=== PATIENT | male | born 1965 | race Two or more races ===

== ENCOUNTER 2016-11-13 06:18 | Inpatient (IN) | payer MEDICAID ==
[2016-11-13] VITALS (25 sets, daily range): BP systolic 100–139; BP diastolic 58–94
[~2016-11-13] VITALS: Ht 175.3 cm; Wt 84.4 kg
[~2016-11-13 06:18] MED LIST: ACYC800T PO; ETOMIDATE 2 MG/ML VIAL ONE; LEVO750T21 PO; PHEN100C4 PO; SUCCINYLCHOLINE CHLORIDE 20 MG/ML VIAL ONE
[2016-11-13] MEDS ORDERED: IV NS 0.9% 1,000 ML BAG IV ONE ×3 (06:30→08:30)
[2016-11-13] MEDS ORDERED: IV NS 0.9% 2,000 ML ONE (06:35)
[2016-11-13] MEDS ORDERED: IV SET PRIMARY 1 EA INFUS.SET MC ONE (06:35)
[2016-11-13] MEDS ORDERED: SECONDARY IV SET 1 EA INFUS.SET MC ONE (06:35)
[2016-11-13 06:57] LABS: BASOPHILS % (AUTO) 0.4 % (0.0-2.0); DIFF TOTAL % 100 %; EOSINOPHILS # (AUTO) 0.2 /CMM (0.0-0.7); EOSINOPHILS % (AUTO) 1.5 % (0.0-6.0); HEMATOCRIT 49 % (39-51); HEMOGLOBIN 16.1 g/dL (13.5-17.5); LYMPHOCYTES # (AUTO) 3.7 /CMM (0.8-4.8); LYMPHOCYTES % (AUTO) 32.9 % (20.0-44.0); MEAN CORPUSCULAR HEMOGLOBIN 32 PG (26.0-33.0); MEAN CORPUSCULAR HGB CONC 33 g/dl (31.0-36.0); MEAN CORPUSCULAR VOLUME 96 fL (80-96); MONOCYTES # (AUTO) 0.6 /CMM (0.1-1.30); NEUTROPHILS # (AUTO) 6.7 /CMM (1.8-8.9); NEUTROPHILS % (AUTO) 60.2 % (43.0-81.0); PLATELET COUNT (AUTO) 269 /CMM (150-450); RED BLOOD CELL COUNT(AUTO) 5.06 MIL/uL (4.5-6.0); WHITE BLOOD COUNT (AUTO) 11.2 K/uL (4.3-11.0)
[2016-11-13] MEDS ORDERED: LORAZEPAM INJ 2 MG/ML VIAL ONE ×2 (06:58→07:11)
[2016-11-13] MEDS ORDERED: LORAZEPAM INJ 2 MG/ML VIAL IV ONE ×3 (07:00→11:00)
[2016-11-13 07:02] LABS: INR 0.99 (0.87-1.13); PROTHROMBIN TIME 10.4 SECS (9.5-12.7)
[2016-11-13 07:05] LABS: ANION GAP 29 (5-14); CALCIUM, SERUM 8.7 mg/dL (8.5-10.1); CARBON DIOXIDE 11 mmol/L (21-32); CHLORIDE 103 mmol/L (98-107); CREATININE 1.2 mg/dL (0.6-1.3); GFR 64 mL/min (>60); GLUCOSE 162 mg/dL (74-106); POTASSIUM 4.2 mmol/L (3.5-5.1); SODIUM SERUM 139 mmol/L (136-145); UREA NITROGEN, BLOOD 13 mg/dL (7-18)
[2016-11-13 07:14] LABS: ALANINE AMINOTRANSFERASE 34 U/L (12-78); ALBUMIN 3.9 g/dL (3.4-5.0); ASPARTATE AMINOTRANSFERASE 21 U/L (15-37); BILIRUBIN,DIRECT 0.1 mg/dL (0.0-0.2); BILIRUBIN,TOTAL 0.2 mg/dL (0.2-1.0); INDIRECT BILIRUBIN 0.1 mg/dL (0.0-1.1); TOTAL PROTEIN, SERUM 8.2 g/dL (6.4-8.2)
[2016-11-13 07:34] LABS: PHENOBARBITAL 1 ug/ml (15-39); VALPROIC ACID < 3 ug/mL (50-100)
[2016-11-13 07:39] LABS: LACTIC ACID 16.8 mmol/L (0.4-2.0)
[2016-11-13] MEDS ORDERED: HALOPERIDOL LACTATE INJ 5 MG/ML VIAL ONE (07:46)
[2016-11-13 07:47] LABS: *LACTIC ACID REFLEX FLAG YES
[2016-11-13] MEDS ORDERED: PROPOFOL 100 ML IV ONE (07:58)
[2016-11-13] MEDS ORDERED: IV NS 0.9% 1,000 ML ONE (07:58)
[2016-11-13] MEDS ORDERED: IV SET PRIMARY PUMP SET 1 EA INFUS.SET MC ONE ×5 (07:58→10:32)
[2016-11-13] MEDS ORDERED: HALOPERIDOL LACTATE INJ 5 MG/ML VIAL IV ONE (08:00)
[2016-11-13] MEDS ORDERED: phenytoin SODIUM IV 1,000 MG in IV NS 0.9% 100 ML IV ONE ×2 (08:00→09:30)
[2016-11-13] MEDS ORDERED: PROPOFOL 0 ML IV ONE (08:14)
[2016-11-13 08:29] LABS: PHENCYCLIDINE SCREEN,URINE NEGATIVE (NEGATIVE)
[2016-11-13 08:30] LABS: CANNABINOID, URINE POSITIVE (NEGATIVE)
[2016-11-13] MEDS ORDERED: CEFTRIAXONE 1 G in IV D5W 50 ML IV ONE (08:30)
[2016-11-13 08:32] LABS: KETONES,URINE NEGATIVE (NEGATIVE); LEUKOCYTE ESTERASE ,URINE NEGATIVE (NEGATIVE)
[2016-11-13 08:36] LABS: ADD UA MICROSCOPIC YES
[2016-11-13] MEDS: PROPOFOL 100 ML IV PRN ×5 (08:48→20:36)
[2016-11-13 08:55] LABS: ADD URINE CULTURE YES; RBC,URINE 21-50 /HPF (0-2)
[2016-11-13] MEDS ORDERED: CEFTRIAXONE 1GM BAG (ER ONLY) 50 ML IV ONE (09:02)
[2016-11-13 09:10] LABS: ABG HCO3 22.8 mmol/L; ABG PCO2 47.8 mmHg (35.0-45.0); ABG PH 7.296 (7.350-7.450); ABG PO2 238.7 mmHg (75.0-100.0); ABG TOTAL HEMOGLOBIN 14.8 G/dL (13.5-18.0); ALLEN TEST Pass; AaDO2 281.5 mmHg; O2Hb 97.1 % (94.0-97.0)
[2016-11-13] MEDS ORDERED: ONDANSETRON HCL/PF 4 MG/2 ML VIAL IVP PRN (09:30)
[2016-11-13] MEDS ORDERED: ACETAMINOPHEN 325 MG TABLET PO PRN (09:30)
[2016-11-13] MEDS ORDERED: MAG HYDROX/AL HYDROX/SIMETH 30 ML UDC PO PRN (09:30)
[2016-11-13] MEDS ORDERED: ZOLPIDEM TARTRATE 5 MG TABLET PO PRN (09:30)
[2016-11-13] MEDS ORDERED: Z GUARD REMEDY 2 OZ OINT TP PRN (09:30)
[2016-11-13] MEDS ORDERED: IV NS 0.9% 500 ML BAG IV ONE (09:30)
[2016-11-13] MEDS ORDERED: MAGNESIUM HYDROXIDE 30 ML UDC PO PRN (09:30)
[2016-11-13] MEDS: IV NS 0.9% 1,000 ML IV PRN ×2 (10:35→22:10)
[2016-11-13] MEDS: PANTOPRAZOLE 40 MG VIAL IV SCH (10:35)
[2016-11-13] MEDS: ENOXAPARIN SODIUM 40 MG/0.4 ML DISP.SYRIN SQ SCH (10:51)
[2016-11-14] VITALS (35 sets, daily range): BP systolic 101–167; BP diastolic 61–129
[2016-11-14] MEDS: PROPOFOL 100 ML IV PRN ×5 (00:06→15:04)
[2016-11-14] MEDS: PHENYTOIN SODIUM IV 50 MG/ML VIAL IV SCH ×3 (04:07→20:56)
[2016-11-14 04:37] LABS: BASOPHILS % (AUTO) 0.3 % (0.0-2.0); DIFF TOTAL % 100 %; EOSINOPHILS # (AUTO) 0.1 /CMM (0.0-0.7); EOSINOPHILS % (AUTO) 0.7 % (0.0-6.0); HEMATOCRIT 40 % (39-51); HEMOGLOBIN 13.8 g/dL (13.5-17.5); LYMPHOCYTES # (AUTO) 1.7 /CMM (0.8-4.8); LYMPHOCYTES % (AUTO) 17.4 % (20.0-44.0); MEAN CORPUSCULAR HEMOGLOBIN 32 PG (26.0-33.0); MEAN CORPUSCULAR HGB CONC 34 g/dl (31.0-36.0); MEAN CORPUSCULAR VOLUME 95 fL (80-96); MONOCYTES # (AUTO) 0.6 /CMM (0.1-1.30); MONOCYTES % (AUTO) 6.3 % (2.0-12.0); NEUTROPHILS # (AUTO) 7.5 /CMM (1.8-8.9); NEUTROPHILS % (AUTO) 75.3 % (43.0-81.0); PLATELET COUNT (AUTO) 228 /CMM (150-450); RED BLOOD CELL COUNT(AUTO) 4.28 MIL/uL (4.5-6.0); WHITE BLOOD COUNT (AUTO) 9.9 K/uL (4.3-11.0)
[2016-11-14 04:53] LABS: ALBUMIN 2.9 g/dL (3.4-5.0); BILIRUBIN,TOTAL 0.3 mg/dL (0.2-1.0); CALCIUM, SERUM 7.4 mg/dL (8.5-10.1); CREATININE 0.8 mg/dL (0.6-1.3); PHOSPHORUS 2.9 mg/dL (2.5-4.9); POTASSIUM 3.5 mmol/L (3.5-5.1); TOTAL PROTEIN, SERUM 6.3 g/dL (6.4-8.2)
[2016-11-14 05:02] LABS: THYROID STIMULATING HORMONE 0.367 uIU/mL (0.358-3.74)
[2016-11-14] MEDS: PANTOPRAZOLE 40 MG VIAL IV SCH (08:02)
[2016-11-14] MEDS: ENOXAPARIN SODIUM 40 MG/0.4 ML DISP.SYRIN SQ SCH (08:33)
[2016-11-14] MEDS ORDERED: IV SET PRIMARY PUMP SET 1 EA INFUS.SET MC ONE (10:01)
[2016-11-14] MEDS ORDERED: DC PROPOFOL WHEN EXTUBATED XX PRN (11:00)
[2016-11-14] MEDS: IV NS 0.9% 1,000 ML IV PRN (11:00)
[2016-11-14] MEDS ORDERED: HALOPERIDOL LACTATE INJ 5 MG/ML VIAL IV ONE (17:00)
[2016-11-14] MEDS ORDERED: HALOPERIDOL LACTATE INJ 5 MG/ML VIAL IM ONE (17:00)
[2016-11-15] VITALS (21 sets, daily range): BP systolic 119–160; BP diastolic 58–101
[2016-11-15] MEDS: IV NS 0.9% 1,000 ML IV PRN ×2 (04:10→18:34)
[2016-11-15] MEDS: PHENYTOIN SODIUM IV 50 MG/ML VIAL IV SCH ×3 (04:10→21:14)
[2016-11-15] MEDS: PANTOPRAZOLE 40 MG VIAL IV SCH (08:32)
[2016-11-15] MEDS: ENOXAPARIN SODIUM 40 MG/0.4 ML DISP.SYRIN SQ SCH (08:32)
[2016-11-15] MEDS: SULFAMETH/TRIMETH 800/160 MG 1 UDTAB TABLET PO SCH (21:14)
[2016-11-16] VITALS: BP 134/72
[2016-11-16 04:00] VITALS: BP 127/83
[2016-11-16] MEDS: PHENYTOIN SODIUM IV 50 MG/ML VIAL IV SCH ×2 (04:42→12:24)
[2016-11-16 08:00] VITALS: BP 133/84
[2016-11-16 08:00] LABS: BASOPHILS % (AUTO) 0.1 % (0.0-2.0); DIFF TOTAL % 100 %; EOSINOPHILS # (AUTO) 0.2 /CMM (0.0-0.7); EOSINOPHILS % (AUTO) 1.5 % (0.0-6.0); HEMATOCRIT 48 % (39-51); HEMOGLOBIN 16.2 g/dL (13.5-17.5); LYMPHOCYTES # (AUTO) 1.4 /CMM (0.8-4.8); LYMPHOCYTES % (AUTO) 12.6 % (20.0-44.0); MEAN CORPUSCULAR HEMOGLOBIN 32 PG (26.0-33.0); MEAN CORPUSCULAR HGB CONC 34 g/dl (31.0-36.0); MEAN CORPUSCULAR VOLUME 95 fL (80-96); MONOCYTES # (AUTO) 0.7 /CMM (0.1-1.30); MONOCYTES % (AUTO) 6.4 % (2.0-12.0); NEUTROPHILS % (AUTO) 79.4 % (43.0-81.0); PLATELET COUNT (AUTO) 230 /CMM (150-450); RED BLOOD CELL COUNT(AUTO) 5.03 MIL/uL (4.5-6.0); WHITE BLOOD COUNT (AUTO) 11.4 K/uL (4.3-11.0)
[2016-11-16] MEDS: SULFAMETH/TRIMETH 800/160 MG 1 UDTAB TABLET PO SCH (08:19)
[2016-11-16] MEDS: PANTOPRAZOLE 40 MG VIAL IV SCH (08:19)
[2016-11-16] MEDS: ENOXAPARIN SODIUM 40 MG/0.4 ML DISP.SYRIN SQ SCH (08:20)
[2016-11-16 08:26] LABS: ALBUMIN 3.8 g/dL (3.4-5.0); BILIRUBIN,TOTAL 0.9 mg/dL (0.2-1.0); CALCIUM, SERUM 8.9 mg/dL (8.5-10.1); CREATININE 0.8 mg/dL (0.6-1.3); POTASSIUM 3.7 mmol/L (3.5-5.1); TOTAL PROTEIN, SERUM 8.3 g/dL (6.4-8.2)
[2016-11-16 09:26] LABS: ABG BASE EXCESS -2.4 mmol/L; ABG HCO3 21.1 mmol/L; ABG PCO2 33.5 mmHg (35.0-45.0); ABG PH 7.418 (7.350-7.450); ABG PO2 74.5 mmHg (75.0-100.0); ABG TOTAL HEMOGLOBIN 16.5 G/dL (13.5-18.0); ALLEN TEST Pass; AaDO2 35.1 mmHg; O2Hb 92.9 % (94.0-97.0)
[2016-11-16 16:00] VITALS: BP 144/83
== END 2016-11-16 15:57 | disposition home or self-care (01) | DRG 53 ==
LOC: ER 06:19 → ICU 08:51 → MED 11-15 15:45 → TELE 11-15 16:25 → MED 11-16 09:03
PROVIDERS: ADMIT Internal Medicine; ATTEND Internal Medicine
PROC: 0BH17EZ Insertion of Endotracheal Airway into Trachea, Via Natural or Artificial Opening (ICD-10-PCS; principal; 2016-11-13)
PROC: 5A1945Z Respiratory Ventilation, 24-96 Consecutive Hours (ICD-10-PCS; principal; 2016-11-13)
PROC: 05H533Z Insertion of Infusion Device into Right Subclavian Vein, Percutaneous Approach (ICD-10-PCS; principal; 2016-11-13)
PROC: 05H533Z Insertion of Infusion Device into Right Subclavian Vein, Percutaneous Approach (ICD-10-PCS; 2016-11-14)
DX: G40.89 Other seizures (principal); J96.00 Acute respiratory failure, unspecified whether with hypoxia or hypercapnia; I21.4 Non-ST elevation (NSTEMI) myocardial infarction; E87.2 Acidosis; F12.90 Cannabis use, unspecified, uncomplicated
CPT/HCPCS: 31720; 36415; 36600; 70450-TC; 71010-TC; 80048-TC; 80053-TC; 80061-TC; 80076-TC; 80164-TC; 80184-TC; 80185-TC; 80305; 81000-TC; 82140-TC; 82803-TC; 83605-TC; 83735-TC; 84100-TC; 84443-TC; 84484-TC; 85025-TC; 85730-TC; 87040-TC; 87070-TC; 87081-TC; 87086-TC; 87186-TC; 94003-TC; 94799-TC; 97001-TC; C9113; G0480; J0330; J0696; J1165; J1630; J1650; J2060; J3490; J7030